=== PATIENT | female | born 1990 | race Hispanic/Latino ===

== ENCOUNTER 2019-02-13 11:50 | Inpatient (IN) | payer OTHER ==
[2019-02-18] MEDS ORDERED: BUTORPHANOL 1 MG/ML INJ IV PRN (00:48)
[2019-02-18] MEDS ORDERED: Ringers Lactate 1,000 ML IV PRN (00:48)
[2019-02-18] MEDS ORDERED: METHYLERGONOVINE 0.2MG/ML AMP IM PRN (00:48)
[2019-02-18] MEDS ORDERED: MEPERIDINE HCL 25 MG/0.5 ML IV PRN (00:48)
[2019-02-18] MEDS ORDERED: PROMETHAZINE 25 MG/ML VIAL IM PRN (00:48)
[2019-02-18] MEDS ORDERED: CARBOPROST TROME 250 MCG/ML IM PRN (00:48)
[2019-02-18] MEDS ORDERED: MIDAZOLAM HCL 2 MG/2 ML INJ IV PRN (00:48)
[2019-02-18] MEDS ORDERED: Ringers Lactate 1,000 ML IV SCH (01:00)
[2019-02-18] MEDS ORDERED: OXYTOCIN/LR 20 UNIT/1,000 ML BAG IV SCH ×2 (01:00→05:00)
[2019-02-18 01:06] LABS: RPR Titer ND
[2019-02-18 01:10] LABS: Absolute Lymphocytes (CBC) 1.8 K/uL (0.7-4.9); Absolute Monocytes 0.7 K/uL (0.1-1.3); Absolute Neutrophil 7.3 K/uL (1.8-8.0); Basophils % 0.2 % (0-1.3); Eosinophils % 0.4 % (0-4.4); Hematocrit 37.4 % (36.0-45.0); Lymphocytes % 18.1 % (15.3-44.8); MPV 8.8 fL (7.6-11.3); Monocytes % 7.2 % (3.3-12.3); RBC Red Blood Cell Count 4.24 M/uL (3.86-4.86); Urine Appearance TURBID; Urine Blood 3+ (NEG); Urine Color RED; Urine Glucose TRACE (NEG); Urine Protein 2+ (NEG); Urine Specific Gravity >=1.030 (1.005-1.030)
[2019-02-18 01:14] LABS: Urine Bilirubin NEGATIVE (NEG); Urine Microscopic Reflex ORDER UMIC
[2019-02-18 01:25] LABS: Urine Bacteria >50 /HPF (<20); Urine Culture Reflex Order NOT NEEDED; Urine Mucus HEAVY /HPF (NONE SEEN); Urine RBC TNTC /HPF (NONE SEEN)
[2019-02-18] MEDS ORDERED: LIDOCAINE 1% MPF 30 ML VIAL ONE (02:00)
[2019-02-18 02:08] VITALS: BMI 35.6
[2019-02-18] MEDS ORDERED: BUPIVACAINE 0.25% PF 10 ML VIAL IV PRN (02:08)
[2019-02-18] MEDS ORDERED: FENTANYL/BUPIVACAINE/NS/PF 200 MCG/100 ML BAG EP PRN (02:08)
[2019-02-18] MEDS ORDERED: FENTANYL CITR 100 MCG/2 ML IV ONE (02:08)
[2019-02-18] MEDS ORDERED: Ringers Lactate 1,000 ML IV ONE (03:49)
--- NOTE | 2019-02-18 03:53 | PN ---
Vicky García got an epidural at her request at 8 cm, now has basically stopped dilating. She is 9. She is on Pitocin. We will cut the epidural back from 12 to 10 and increase the Pitocin until she can feel to be able to push the baby out. LYNNE/FILIBERTO Voice ID: [id number] Report ID: [id number]
[2019-02-18] MEDS ORDERED: DOCUSATE NA/SENNA CONC 1 TAB PO PRN (04:36)
[2019-02-18] MEDS ORDERED: Oxycodone HCl/Acetaminophen 1 TAB TAB PO PRN (04:36)
[2019-02-18] MEDS ORDERED: BISACODYL 10 MG RECTAL SUPP RECT PRN (04:36)
[2019-02-18] MEDS ORDERED: DIPHENHYDRAMINE 25 MG TAB/CAP PO PRN (04:36)
[2019-02-18] MEDS ORDERED: ACETAMINOPHEN 500 MG TAB PO PRN (04:36)
[2019-02-18] MEDS: IBUPROFEN 200 MG TAB PO PRN ×2 (08:00→21:07)
[2019-02-18] MEDS: Oxycodone HCl/Acetaminophen 1 TAB TAB PO PRN (12:56)
[2019-02-18 20:22] LABS: RPR (Rapid Plasma Reagin) NON-REACT (NON-REACT)
[2019-02-19] MEDS: IBUPROFEN 200 MG TAB PO PRN (04:08)
--- NOTE | 2019-02-19 08:03 | OP ---
Surgeon: Cleveland Doe MD This is a 28-year-old 3, para 2, 40 weeks 2 days, scheduled for induction later this morning, came in after midnight and active, slowly advancing labor noted to be approximately 6 to 7 cm. At 8 cm requested, received epidural anesthesia. This slowed her progress somewhat, but we moved the mayra ntenance dose from 12-10 and she progressed rapidly thereafter. She spontaneously delivered an estim ated 8-pound male , Apgars 9 and 9. No episiotomy. Very small first degree laceration sutured with 2-0 chromic, approximately 4-5 stitches. Schultze delivery of the placenta, which was inspecte d and noted to be intact and normal. 400 cc or less blood loss. The patient is Rh positive, immune to Rubella. Negative beta strep screen. Tolerated all procedures well. Final Diagnoses: Term intrauterine , 40 weeks 2 days, gestational diabetes, vaginal deliver y, epidural anesthesia. LYNNE/FILIBERTO Voice ID: [id number] Report ID: [id number]
--- NOTE | 2019-02-19 08:03 | PREOPHP ---
Date of Admission: 02/18/2019 History Of Present Illness: A 28-year-old, 3, para 2, 40 weeks 2 days, scheduled to be induc ed later this morning. Came in an active rapidly advancing labor, 6 cm on admission. Within the nex t 20 minutes, she is 7, 100% effaced, 0 to +1 station, rupture of membranes, clear fluid. Scalp elec trode placed. We are in a process of hydrating her. She is requesting epidural, but probably would not have time. She has been a gestational diabetic, non-compliant. She has not been taking her glyb uride as per instructions. Ultrasound yesterday, however, demonstrated intrauterine gestation of les s than 8 pounds according to ultrasound estimates. This has been discussed thoroughly with the patie nt on numerous visits. Anticipate delivery relatively soon. LYNNE/FILIBERTO Voice ID: [id number]
[2019-02-19] MEDS: Oxycodone HCl/Acetaminophen 1 TAB TAB PO PRN (08:47)
[2019-02-19 08:56] VITALS: BP 118/69; TEMP 98.4
[2019-02-21 11:30] LABS: HBsAG Nonreactive (Nonreactive)
== END 2019-02-19 11:15 | disposition home or self-care (01) | DRG 807 ==
LOC: 2ND-WC 02-18 00:40
PROVIDERS: ADMIT Specialist; ATTEND Specialist
PROC: 10E0XZZ Delivery of Products of Conception, External Approach (ICD-10-PCS; principal; 2019-02-18)
PROC: 0HQ9XZZ Repair Perineum Skin, External Approach (ICD-10-PCS; 2019-02-18)
DX: O70.0 First degree perineal laceration during delivery (principal); Z37.0 Single live birth; O24.425 Gestational diabetes mellitus in childbirth, controlled by oral hypoglycemic drugs; Z3A.40 40 weeks gestation of pregnancy; Z91.14 Patient's other noncompliance with medication regimen
CPT/HCPCS: 36415; 76815; 81003; 81015; 85025; 86592; 86901; 87340; 99218; J2175; J2210; J2250; J2590; J3010

== ENCOUNTER 2019-11-15 18:04 | Inpatient (IN) | payer OTHER, SELFPAY ==
--- NOTE | 2019-11-15 18:54 | RAD REPORT ---
EXAM DESCRIPTION: Laurat Pa And Lat (2 Views)11/15/2019 6:45 pm CLINICAL HISTORY: Cough COMPARISON: None FINDINGS: Mild right lower lobe opacity is suspected. Left lung is clear. The heart is normal size IMPRESSION: Mild right lower lobe opacity probably a mild pneumonia
[2019-11-15] MEDS ORDERED: ACETAMINOPHEN 500 MG TAB ONE (19:44)
[2019-11-15] MEDS ORDERED: KETOROLAC 30 MG/ML INJ ONE (20:01)
[2019-11-15] MEDS ORDERED: AZITHROMYCIN 500 MG INJ IVPB ONE (20:01)
[2019-11-15] MEDS ORDERED: NA CHLORIDE 0.9% 2,000 ML ONE (20:02)
[2019-11-15] MEDS ORDERED: CEFTRIAXONE/SWI 1gm 1 GM/10 ML SYR ONE (20:02)
[2019-11-15] MEDS ORDERED: NA CHLORIDE 0.9% 500 ML ONE ×2 (20:02)
[2019-11-15 20:05] LABS: Basophils % 0.2 % (0-1.3); Hematocrit 40.3 % (36.0-45.0); MPV 7.8 fL (7.6-11.3); RBC Red Blood Cell Count 4.67 M/uL (3.86-4.86)
[2019-11-15 20:09] LABS: Protime INR 1.33
[2019-11-15 20:22] LABS: ALT/SGPT 17 U/L (12-78); AST/SGOT 23 U/L (15-37); Albumin 3.7 g/dL (3.4-5.0); Alkaline Phosphatase 89 U/L (45-117); BUN Blood Urea Nitrogen 5 mg/dL (7-18); Bicarbonate 24 mmol/L (21-32); Bilirubin Direct 0.3 mg/dL (0-0.2); Creatine Phosphokinase 47 U/L (26-192); Glucose Level 121 mg/dL (74-106); Lipase 82 U/L (73-393); Potassium 3.5 mmol/L (3.5-5.1); Protein, Total 8.5 g/dL (6.4-8.2); Sodium Level 134 mmol/L (136-145); Troponin (Emerg Dept Use Only) < 0.02 ng/mL (0.0-0.045)
[2019-11-15 20:27] LABS: Urine Blood TRACE (NEG); Urine Glucose NEGATIVE (NEG); Urine Protein 2+ (NEG); Urine Specific Gravity 1.025 (1.005-1.030)
[2019-11-15 20:31] LABS: Urine Bacteria <20 /HPF (<20); Urine Culture Reflex Order NOT NEEDED; Urine Mucus 1+ /HPF (NONE SEEN); Urine RBC NONE SEEN /HPF (NONE SEEN)
[2019-11-15 21:17] LABS: Blood Morphology Comment NOT SEEN (NOT SEEN); Platelet Estimate ADEQ; Urine White Blood Cell Casts OK
--- NOTE | 2019-11-15 21:33 | ER ---
Nurse's Notes [facility] Name: Vicky García Age: 29 yrs Sex: Female : 1990 Arrival Date: 11/15/2019 Time: 18:06 Bed 28 Private MD: Diagnosis: Pneumonia due to other specified bacteria;Other sepsis Presentation: 11/15 18:14 Presenting complaint: Patient states: "It started with the flu 6 weeks ago, 2 weeks aj1 later I got shingles, and then yesterday I started having pains in my back and it got worse today and I've just slept all day." Reports fever at home. TMax 102.4 Reports midback pain that is worse with coughing or deep breathing. Transition of care: patient was not received from another setting of care. Onset of symptoms was October 2019. Risk Assessment: Do you want to hurt yourself or someone else? Patient reports no desire to harm self or others. Initial Sepsis Screen: Does the patient meet any 2 criteria? HR > 90 bpm. No. Patient's initial sepsis screen is negative. Does the patient have a suspected source of infection? Yes: Other: low back pain. Care prior to arrival: None. 18:14 Method Of Arrival: Wheelchair aj1 18:14 Acuity: TERRIE 3 aj1 Triage Assessment: 18:16 General: Appears in no apparent distress. uncomfortable, Behavior is calm, cooperative, aj1 appropriate for age. Pain: Complains of pain in low back area and mid back area Aggravated by cough, deep breathing. Neuro: Level of Consciousness is awake, alert, obeys commands. Cardiovascular: Patient's skin is warm and dry. Respiratory: Airway is patent Respiratory effort is even, unlabored, Respiratory pattern is regular, symmetrical. CORRECTION WARDEN: 19:30 LMP N/A - Irregular menses ca1 Historical: - Allergies: 18:16 No Known Allergies; aj1 - Home Meds: 18:16 None [Active]; aj1 - PMHx: 18:16 None; aj1 - PSHx: 18:16 None; aj1 - Immunization history:: Flu vaccine is not up to date. - Coronavirus screen:: The patient has NOT traveled to [place] in the past 14 days. - Social history:: Smoking status: Patient/guardian denies using tobacco. - Ebola Screening: : Patient denies travel to an Ebola-affected area in the 21 days before illness onset. Screenin:20 Abuse screen: Denies threats or abuse. Denies injuries from another. Nutritional ca1 screening: No deficits noted. Tuberculosis screening: No symptoms or risk factors identified. Fall Risk None identified. Assessment: 19:20 General: Appears in no apparent distress. comfortable, Behavior is calm, cooperative, ca1 appropriate for age. Pain: Complains of pain in right scapular area and right subscapular area Pain currently is 6 out of 10 on a pain scale. Pain began 2-3 days ago. Pain: Aggravated by coughing and breathing. Neuro: Level of Consciousness is awake, alert, obeys commands, Oriented to person, place, time, situation, Appropriate for age. Cardiovascular: Heart tones S1 S2 present Capillary refill < 3 seconds Patient's skin is warm and dry. Respiratory: Airway is patent Respiratory effort is even, unlabored, Respiratory pattern is regular, symmetrical, Breath sounds are clear bilaterally. Respiratory: Reports cough that is. GI: Abdomen is round non-distended, Bowel sounds present X 4 quads. Abd is soft and non tender X 4 quads. : No deficits noted. No signs and/or symptoms were reported regarding the genitourinary system. EENT: No deficits noted. No signs and/or symptoms were reported regarding the EENT system. Derm: Skin is intact, is healthy with good turgor, Skin is pink, warm \\T\\ dry. Musculoskeletal: Circulation, motion, and sensation intact. Capillary refill < 3 seconds. 20:30 Reassessment: Patient appears in no apparent distress at this time. Patient and/or ca1 family updated on plan of care and expected duration. Pain level reassessed. Patient is alert, oriented x 3, equal unlabored respirations, skin warm/dry/pink. 21:41 Reassessment: Patient appears in no apparent distress at this time. Patient and/or ca1 family updated on plan of care and expected duration. Pain level reassessed. Patient is alert, oriented x 3, equal unlabored respirations, skin warm/dry/pink. Hospitalist at bedside. 22:34 Reassessment: Patient appears in no apparent distress at this time. Patient and/or ca1 family updated on plan of care and expected duration. Pain level reassessed. Patient is alert, oriented x 3, equal unlabored respirations, skin warm/dry/pink. Vital Signs: 18:16 BP 124 / 84; Pulse 118; Resp 20; Temp 99.8(O); Pulse Ox 97% on R/A; Weight 86.18 kg aj1 (R); Height 5 ft. 5 in. (165.10 cm) (R); Pain 0/10; 19:36 BP 138 / 85; Pulse 115; Resp 16 S; Temp 102.8(O); Pulse Ox 98% on R/A; ca1 21:05 BP 135 / 88; Pulse 90; Resp 16 S; Temp 98.9(O); Pulse Ox 98% on R/A; ca1 21:41 BP 124 / 85; Pulse 97; Resp 16 S; Pulse Ox 99% on R/A; ca1 22:32 BP 132 / 85; Pulse 89; Resp 20; Temp 98.0(O); Pulse Ox 99% ; lt1 18:16 Body Mass Index 31.62 (86.18 kg, 165.10 cm) aj ED Course: 18:06 Patient arrived in ED. as 18:16 Triage completed. aj1 19:14 Marin Madden PA is PHCP. cp 19:14 Mynor Martinez MD is Attending Physician. cp 19:20 Terrie Stephen RN is Primary Nurse. ca1 19:20 Patient has correct armband on for positive identification. Bed in low position. Call ca1 light in reach. Side rails up X 1. Pulse ox on. NIBP on. Warm blanket given. 19:21 Arm band placed on right wrist. ca1 19:50 No provider procedures requiring assistance completed. Inserted saline lock: 18 gauge ca1 in left antecubital area, using aseptic technique. Blood collected. 19:50 Initial lab(s) drawn, by me, sent to lab. First set of blood cultures drawn by me. ca1 19:55 Second set of blood cultures drawn by lab staff. ca1 21:30 Michael Carson is Hospitalizing Provider. cp 22:35 Patient admitted, IV remains in place. ca1 Administered Medications: 19:40 Drug: Tylenol 1000 mg Route: PO; ca1 21:48 Follow up: Response: No adverse reaction; Temperature is decreased ca1 19:55 Drug: NS 0.9% (30 ml/kg) 30 ml/kg Route: IV; Rate: bolus; Site: left antecubital; ca1 21:46 Follow up: Response: No adverse reaction; IV Status: Completed infusion ca1 19:56 Drug: Rocephin 1 grams Route: IV; Rate: calculated rate; Site: left antecubital; ca1 21:44 Follow up: Response: No adverse reaction; IV Status: Completed infusion ca1 20:02 Drug: Zithromax 500 mg Route: IVPB; Infused Over: 1 hrs; Site: left antecubital; ca1 21:43 Follow up: Response: No adverse reaction; IV Status: Completed infusion ca1 20:20 Drug: TORadol - Ketorolac 15 mg Route: IVP; Site: left antecubital; ca1 21:43 Follow up: Response: No adverse reaction; Pain is decreased ca1 Outcome: 21:32 Decision to Hospitalize by Provider. cp 22:56 Admitted to Tele accompanied by tech, via wheelchair, room 422, with chart, Report ca1 called to SAMMI Osman 22:56 Condition: stable 22:56 Instructed on the need for admit. 23:06 Patient left the ED. fc Signatures: Vaishali Aguilar RN RN aj1 Brigida Soares RN RN fc Carina Hurtado Corey, PA PA cp Terrie Stephen RN RN ca1 Heather High lt1 Corrections: (The following items were deleted from the chart) 18:18 18:16 Pain: Complains of pain in low back area aj1 aj 18:19 18:14 Presenting complaint: Patient states: "It started with the flu 6 weeks ago, 2 aj1 weeks later I got shingles, and then yesterday I started having pains in my back and it got worse today and I've just slept all day." Reports fever at home. TMax 102.4 aj1
--- NOTE | 2019-11-15 21:33 | EDPHYS ---
Physician Documentation [facility] Name: Vicky García Age: 29 yrs Sex: Female : 1990 Arrival Date: 11/15/2019 Time: 18:06 Bed 28 Private MD: ED Physician Mynor Martinez HPI: 11/15 19:20 This 29 yrs old Female presents to ER via Wheelchair with complaints of Flu cp Symptoms - lung pain. 19:20 The patient or guardian reports chest pain that is located primarily in the right lower cp lateral chest. 19:20 The pain radiates to right back. Associated signs and symptoms: Pertinent positives: cp cough, shortness of breath, fever, Pertinent negatives: lower extremity pain, lower extremity swelling, recent travel, syncope, vomiting. The chest pain is described as sharp. Duration: The patient or guardian reports a single episode, that is still ongoing, and worsening. Modifying factors: the symptoms are aggravated by cough, deep breath. TAI CHI INSTRUCTOR: 19:30 LMP N/A - Irregular menses ca1 Historical: - Allergies: 18:16 No Known Allergies; aj1 - Home Meds: 18:16 None [Active]; aj1 - PMHx: 18:16 None; aj1 - PSHx: 18:16 None; aj1 - Immunization history:: Flu vaccine is not up to date. - Coronavirus screen:: The patient has NOT traveled to [place] in the past 14 days. - Social history:: Smoking status: Patient/guardian denies using tobacco. - Ebola Screening: : Patient denies travel to an Ebola-affected area in the 21 days before illness onset. ROS: 19:25 Constitutional: Positive for body aches, chills, Negative for fever, poor PO intake. cp 19:25 Eyes: Negative for injury, pain, redness, and discharge. cp 19:25 ENT: Negative for drainage from ear(s), ear pain, sore throat, difficulty swallowing, difficulty handling secretions. 19:25 Cardiovascular: Positive for chest pain, of the right lower lateral chest, Negative for edema, palpitations. 19:25 Respiratory: Positive for cough, "sounds productive", shortness of breath, Negative for wheezing. 19:25 Abdomen/GI: Negative for abdominal pain, vomiting, diarrhea, constipation. 19:25 Back: Positive for radiated pain. 19:25 : Negative for urinary symptoms. 19:25 Neuro: Negative for altered mental status, headache, weakness. 19:25 All other systems are negative. Exam: 19:30 Constitutional: The patient appears in no acute distress, alert, awake, cp non-diaphoretic, non-toxic, well developed, well nourished, obviously ill. 19:30 Head/Face: Normocephalic, atraumatic. cp 19:30 Eyes: Periorbital structures: appear normal, Conjunctiva: normal, no exudate, no injection, Sclera: no appreciated abnormality, Lids and lashes: appear normal, bilaterally. 19:30 ENT: External ear(s): are unremarkable, Ear canal(s): are normal, clear, TM's: bulging, is not appreciated, bilaterally, dullness, bilaterally, erythema, is not appreciated, bilaterally, Nose: is normal, Mouth: Lips: moist, Oral mucosa: pink and intact, moist, Posterior pharynx: is normal, airway is patent, no erythema, no exudate. 19:30 Neck: ROM/movement: is normal, is supple, without pain, no range of motions limitations, no meningismus, no nuchal rigidity. 19:30 Chest/axilla: Inspection: normal, Palpation: is normal, no crepitus, no tenderness. 19:30 Cardiovascular: Rate: tachycardic, Rhythm: regular, Heart sounds: murmur, not appreciated, rub, not appreciated, gallop, not appreciated, Edema: is not appreciated, JVD: is not appreciated. 19:30 Respiratory: the patient does not display signs of respiratory distress, Respirations: labored breathing, is not present, intercostal retractions, are absent, shallow respirations, that is mild, tachypnea, is not appreciated, Breath sounds: bronchial sounds, that are mild, are heard in the right posterior middle lobe and right posterior lower lobe, decreased breath sounds, are not appreciated, stridor, is not appreciated, wheezing: is not appreciated. 19:30 Abdomen/GI: Inspection: abdomen appears normal, Bowel sounds: active, all quadrants, Palpation: abdomen is soft and non-tender, in all quadrants, rebound tenderness, is not appreciated, voluntary guarding, is not appreciated, involuntary guarding, is not appreciated. 19:30 Neuro: Orientation: to person, place \\T\\ time. Mentation: is normal, Cerebellar function: is grossly normal, Motor: moves all fours, strength is normal, Sensation: is normal. 20:13 ECG was reviewed by the Attending Physician. cp Vital Signs: 18:16 BP 124 / 84; Pulse 118; Resp 20; Temp 99.8(O); Pulse Ox 97% on R/A; Weight 86.18 kg aj1 (R); Height 5 ft. 5 in. (165.10 cm) (R); Pain 0/10; 19:36 BP 138 / 85; Pulse 115; Resp 16 S; Temp 102.8(O); Pulse Ox 98% on R/A; ca1 21:05 BP 135 / 88; Pulse 90; Resp 16 S; Temp 98.9(O); Pulse Ox 98% on R/A; ca1 21:41 BP 124 / 85; Pulse 97; Resp 16 S; Pulse Ox 99% on R/A; ca1 22:32 BP 132 / 85; Pulse 89; Resp 20; Temp 98.0(O); Pulse Ox 99% ; lt1 18:16 Body Mass Index 31.62 (86.18 kg, 165.10 cm) aj1 MDM: 19:16 Patient medically screened. cp 21:30 Data reviewed: vital signs, nurses notes, lab test result(s), EKG, radiologic studies, cp plain films, I have discussed the patient's presentation/case with the attending Emergency Department Physician; and as a result, I will admit patient. 21:30 Test interpretation: by ED physician or midlevel provider: ECG. Response to treatment: cp the patient's symptoms have markedly improved after treatment. Physician consultation: Michael Carson was called at 21:25, was contacted at 21:25, regarding admission, to the telemetry unit. patient's condition. 11/15 19:42 Order name: Influenza Screen (a \\T\\ B) cp 11/15 19:42 Order name: Basic Metabolic Panel cp 11/15 19:42 Order name: Blood Culture Adult (2) cp 11/15 19:42 Order name: CBC with Diff cp 11/15 19:42 Order name: CPK cp 11/15 19:42 Order name: Lactate cp 11/15 19:42 Order name: LFT's cp 11/15 19:42 Order name: Lipase cp 11/15 19:42 Order name: Procalcitonin cp 11/15 19:42 Order name: Protime (+inr) cp 11/15 19:42 Order name: Ptt, Activated cp 11/15 19:42 Order name: Troponin (emerg Dept Use Only) cp 11/15 19:42 Order name: Urine Microscopic Only cp 11/15 20:07 Order name: CBC with Automated Diff EDMS 11/15 21:09 Interpretation: Normal except: WBC 14.2; NATALI% 86.2; LYM% 7.0; NEUT A 12.2. cp 11/15 20:16 Order name: Protime (+INR); Complete Time: 21:09 EDMS 11/15 21:09 Interpretation: Abnormal: PT 15.5. cp 11/15 20:16 Order name: PTT, Activated Partial Thromb; Complete Time: 21:09 EDMS 11/15 20:18 Order name: Lactate; Complete Time: 21:09 EDMS 11/15 20:23 Order name: Basic Metabolic Panel; Complete Time: 21:09 EDMS 11/15 21:09 Interpretation: Normal except: NA 134; GLUC 121; BUN 5; GFR 82. cp 11/15 20:23 Order name: Liver (Hepatic) Function; Complete Time: 21:09 EDMS 11/15 21:10 Interpretation: Normal except: BILID 0.3; TP 8.5; GLOB 4.8; A/G 0.8. cp 11/15 20:23 Order name: Creatine Phosphokinase; Complete Time: 21:09 EDMS 11/15 20:23 Order name: Troponin (Emerg Dept Use Only); Complete Time: 21:09 EDMS 11/15 20:23 Order name: Lipase; Complete Time: 21:09 EDMS 11/15 20:24 Order name: Urine Dipstick--Ancillary (enter results) [facility] 11/15 20:24 Order name: Urine --Ancillary (enter results) [facility] 11/15 20:28 Order name: Urine --Ancillary; Complete Time: 21:09 EDMS 11/15 20:28 Order name: Urine Dipstick-Ancillary; Complete Time: 21:09 EDMS 11/15 21:13 Interpretation: Normal except: UKET 2+; UBLD TRACE; UPROT 2+. cp 11/15 20:29 Order name: Procalcitonin; Complete Time: 21:09 EDMS 11/15 21:09 Interpretation: Abnormal: Procalcitonin 0.90. cp 11/15 20:33 Order name: Urine Microscopic Only; Complete Time: 21:09 EDMS 11/15 20:48 Order name: Influenza Screen (A ; Complete Time: 21:09 EDMS 11/15 21:18 Order name: CBC Smear Scan EDMS 11/15 18:19 Order name: Chest Pa And Lat (2 Views) XRAY aj1 11/15 19:38 Order name: RAD; Complete Time: 19:44 EDMS 11/15 19:44 Interpretation: Report reviewed. cp 11/15 19:42 Order name: Urine Test (obtain specimen); Complete Time: 20:45 cp 11/15 19:42 Order name: Cardiac monitoring; Complete Time: 19:53 cp 11/15 19:42 Order name: EKG - Nurse/Tech; Complete Time: 20:07 cp 11/15 19:42 Order name: IV Saline Lock - Large Bore; Complete Time: 19:53 cp 11/15 19:42 Order name: Labs collected and sent; Complete Time: 19:53 cp 11/15 19:42 Order name: O2 Per Protocol; Complete Time: 20:06 cp 11/15 19:42 Order name: O2 Sat Monitoring; Complete Time: 19:53 cp 11/15 19:42 Order name: Urine Dipstick-Ancillary (obtain specimen); Complete Time: 20:45 cp EC:13 Rate is 108 beats/min. Rhythm is regular. OK interval is normal. QRS interval is cp normal. QT interval is normal. Interpreted by me. Reviewed by me. Administered Medications: 19:40 Drug: Tylenol 1000 mg Route: PO; ca1 21:48 Follow up: Response: No adverse reaction; Temperature is decreased ca1 19:55 Drug: NS 0.9% (30 ml/kg) 30 ml/kg Route: IV; Rate: bolus; Site: left antecubital; ca1 21:46 Follow up: Response: No adverse reaction; IV Status: Completed infusion ca1 19:56 Drug: Rocephin 1 grams Route: IV; Rate: calculated rate; Site: left antecubital; ca1 21:44 Follow up: Response: No adverse reaction; IV Status: Completed infusion ca1 20:02 Drug: Zithromax 500 mg Route: IVPB; Infused Over: 1 hrs; Site: left antecubital; ca1 21:43 Follow up: Response: No adverse reaction; IV Status: Completed infusion ca1 20:20 Drug: TORadol - Ketorolac 15 mg Route: IVP; Site: left antecubital; ca1 21:43 Follow up: Response: No adverse reaction; Pain is decreased ca1 Disposition: 11/15/19 21:32 Hospitalization ordered by Michael Carson for Inpatient Admission. Preliminary diagnosis are Pneumonia due to other specified bacteria, Other sepsis. - Bed requested for Telemetry/MedSurg (Inpatient). - Status is Inpatient Admission. fc - Condition is Stable. - Problem is new. - Symptoms have improved. Addendum: 11/18/2019 07:15 Co-signature as Attending Physician, Mynor Martinez MD I agree with the assessment and k dr plan of care. Signatures: Dispatcher [employer] EDMS Vaishali Aguilar RN RN aj1 Mynor Martinez MD MD [facility] Brigida Soares RN RN Marin Madden PA PA cp Clara Sheikh, SAMMI RN Terrie Stephen RN RN ca1 Corrections: (The following items were deleted from the chart) 11/15 20:06 19:42 Accucheck ordered. cp ca1 22:33 21:32 Hospitalization Ordered by Michael Carson for Inpatient Admission. Preliminary cg diagnosis is Pneumonia due to other specified bacteria; Other sepsis. Bed requested for Telemetry/MedSurg (Inpatient). Status is Inpatient Admission. Condition is Stable. Problem is new. Symptoms have improved. cp 23:06 22:33 11/15/2019 21:32 Hospitalization Ordered by Michael Carson for Inpatient fc Admission. Preliminary diagnosis is Pneumonia due to other specified bacteria; Other sepsis. Bed requested for Telemetry/MedSurg (Inpatient). Status is Inpatient Admission. Condition is Stable. Problem is new. Symptoms have improved. cg
--- NOTE | 2019-11-15 22:11 | P.HP ---
Certification for Inpatient Patient admitted to: Observation With expected LOS: <2 Midnights Practitioner: I am a practitioner with admitting privileges, knowledge of patient current condition, hospital course, and medical plan of care. Services: Services provided to patient in accordance with Admission requirements found in Title 42 Section 412.3 of the Code of Federal Regulations Patient History Date of Service: 11/15/19 Reason for admission: Cough and shortness of breath History of Present Illness: 29-year-old woman with no known past medical history presented to the ED with a complaint of cough and shortness of breath of about 2 days duration. Patient stated her symptoms were preceded by flu-like symptoms which started 6 weeks ago. She also developed a rash and blisters on the left shoulder which were painful and suspected might be shingles. She stated the cough is nonproductive. She has chest pain with deep breathing. She denied any nausea or vomiting. She was afebrile in the ED. Chest x-ray in the ED report opacity in the right lower lobe suggesting mild pneumonia. She has leukocytosis and tachycardia and meet criteria for sepsis. Her procalcitonin is elevated but lactic acid is normal. Patient is admitted for further management of pneumonia with sepsis. Allergies No Known Allergies Allergy (Verified 11/15/19 23:17) Home Medications: Vit No.44/Iron/FA/Dha [Prenate Mini Softgel] 1 cap PO SEECOM 03/05/16 - Past Medical/Surgical History Diabetic: No -: GDM -: NVD x2 - Family History Father -: Diabetes - Social History Smoking Status: Never smoker Alcohol use: No CD- Drugs: No Caffeine use: Yes Review of Systems Other: Except as documented, all other systems reviewed and negative. Physical Examination - Physical Exam General: Alert, In no apparent distress, Oriented x3 HEENT: Normocephalic, Mucous membr. moist/pink, Sclerae nonicteric Neck: Supple, JVD not distended, No Thyromegaly Respiratory: Normal air movement, Crackles/rales (Right lower lobe) Cardiovascular: No edema, Normal pulses, No murmurs, Other (Tachycardia) Capillary refill: <2 Seconds Gastrointestinal: Normal bowel sounds, Soft and benign, Non-distended, No tenderness Musculoskeletal: No swelling, No erythema Integumentary: Rash(es) (Discrete erythematous rash on the left shoulder.) Neurological: Normal speech, Normal strength at 5/5 x4 extr, Cranial nerves 3- 12 intact - Studies Laboratory Data (last 24 hrs) 11/15/19 19:50: PT 15.5 H, INR 1.33, APTT 33.9 11/15/19 19:50: WBC 14.2 H, Hgb 13.3, Hct 40.3, Plt Count 197 11/15/19 19:50: Sodium 134 L, Potassium 3.5, BUN 5 L, Creatinine 0.83, Glucose 121 H, Total Bilirubin 1.0, AST 23, ALT 17, Alkaline Phosphatase 89, Lipase 82 Microbiology Data (last 24 hrs): 11/15/19 20:13 Nasopharnyx Influenza Type A Antigen Screen - Final 11/15/19 20:13 Nasopharnyx Influenza Type B Antigen Screen - Final Assessment and Plan - Problems (Diagnosis) (1) Pneumonia Current Visit: Yes Status: Acute (2) Sepsis Current Visit: Yes Status: Acute (3) Skin rash Current Visit: Yes Status: Acute - Plan Admit to the medical floor. Start IV Zithromax and Rocephin. Start oral Valtrex Bronchodilators prn Follow blood cultures. Obtain sputum culture Monitor CBC. Optimize electrolytes. - Advance Directives Does patient have a Living Will: No Does patient have a Durable POA for Healthcare: No
[2019-11-15] MEDS ORDERED: ALBUTEROL 2.5 MG/3 ML NEB SOL NEB PRN (23:23)
[2019-11-15] MEDS ORDERED: ONDANSETRON 4 MG/2 ML VIAL IV PRN (23:23)
[2019-11-15 23:36] VITALS: BMI 30.4
[2019-11-15] MEDS ORDERED: POTASSIUM CL SA 10 MEQ TAB PO ONE (23:36)
[2019-11-16] MEDS: NA CHLORIDE 0.9% 1,000 ML IV SCH ×3 (00:02→16:47)
[2019-11-16] MEDS: ACETAMINOPHEN 500 MG TAB PO PRN ×2 (02:40→21:10)
[2019-11-16 06:17] LABS: Absolute Lymphocytes (CBC) 1.4 K/uL (0.7-4.9); Basophils % 0.2 % (0-1.3); Hematocrit 33.6 % (36.0-45.0); Lymphocytes % 13.3 % (15.3-44.8); RBC Red Blood Cell Count 3.91 M/uL (3.86-4.86)
[2019-11-16 06:21] LABS: BUN Blood Urea Nitrogen 4 mg/dL (7-18); Bicarbonate 22 mmol/L (21-32); Glucose Level 104 mg/dL (74-106); HDL Cholesterol 34 mg/dL (40-60); LDL Cholesterol, Calculated 52 (<130); Magnesium 1.7 mg/dL (1.8-2.4); Phosphorus 1.3 mg/dL (2.5-4.9); Potassium 3.7 mmol/L (3.5-5.1); Sodium Level 139 mmol/L (136-145)
[2019-11-16] MEDS ORDERED: IBUPROFEN 400 MG TAB PO PRN (08:50)
[2019-11-16] MEDS: ENOXAPARIN 40 MG/0.4 ML SQ SCH (08:52)
[2019-11-16] MEDS: CEFTRIAXONE/SWI 1gm 1 GM/10 ML SYR IVP SCH ×2 (08:52→21:05)
[2019-11-16] MEDS: POTASS/SODIUM PHOSPHATE 1 PKT POWD.PACK PO SCH ×3 (08:52→11:44)
[2019-11-16] MEDS ORDERED: POTASSIUM CL SA 10 MEQ TAB PO ONE (09:00)
[2019-11-16] MEDS ORDERED: CEFTRIAXONE/SWI 1gm 1 GM/10 ML SYR IV SCH (09:00)
[2019-11-16] MEDS ORDERED: MAGNESIUM SULFATE 1 gm IVPB 1 GM/100 ML BAG IV ONE (09:00)
[2019-11-16] MEDS ORDERED: CEFTRIAXONE 1 GM/NS 50 ML 1 GM/50 ML BAG IV SCH (09:00)
[2019-11-16] MEDS: AZITHROMYCIN IV 500 MG in NA CHLORIDE 0.9% 250 ML IVPB SCH (09:52)
[2019-11-16] MEDS ORDERED: INFLUENZA VACCINE (for 3y+) 0.5 ML DOSE IMVAC ONE (11:00)
--- NOTE | 2019-11-16 12:47 | PN ---
Date of Progress Note: 11/16/2019 Subjective: Patient seen and examined. Chart reviewed and case discussed with RN. Patient still waldrop ving some cough, shortness of breath, and minimal sputum production. Medications: List reviewed. Physical Examination: Vital Signs: Temperature 98.1, heart rate 86, blood pressure 114/59, respirations 16, O2 saturations 97% on room air. General: Awake, alert, oriented x3, obese female, BMI 30, ill-appearing. CVS: S1, S2. Regular rate and rhythm. Respiratory: Diminished breath sounds on the right. Some rhonchi heard. No wheezing or stridor. Gastrointestinal: Abdomen is soft, nontender, nondistended. Positive bowel sounds. Extremities: No clubbing, cyanosis, or edema. Neurologic: Nonfocal. Cranial nerves 2 through 12 intact grossly. No focal neurological deficits. Skin: The patient has erythematous rash on the left shoulder. No blisters or vesicles present. Laboratory Data: Sodium 139, potassium 3.7, chloride 110, CO2 of 22, BUN 4, creatinine 0.6, glucose 104, calcium 7.7, phosphorus 1.3, magnesium 1.7. Triglycerides 105, cholesterol 107, LDL 52, HDL 34. Procalcitonin 0.9. WBC 10.5, hemoglobin and hematocrit 11.2 and 33.6, platelets 181, neutrophils 7 8%. Influenza screen is negative. Blood cultures are pending. Assessment: A 29-year-old female with 1.Sepsis, improving. We will continue IV fluids and IV antibiotics secondary to pneumonia. Follow up on cultures. 2.Right lower lobe pneumonia. We will continue IV antibiotics. We will obtain sputum culture. 3.Hypophosphatemia. We will replace and monitor. 4.Hypomagnesemia, replace and monitor. 5.Rash on the shoulder, likely shingles that is healing. We will continue Valtrex. Plan: We will continue with deep venous thrombosis prophylaxis with Lovenox, SCDs. Continue antibio tics. Follow up on cultures. Likely discharge in the next 24 to 48 hours depending on clinical resp onse. SA/MODL Voice ID: [id number] Report ID: [id number]
[2019-11-16] MEDS: VALACYCLOVIR 500 MG TAB PO SCH ×2 (13:48→21:05)
[2019-11-17 06:34] LABS: Absolute Lymphocytes (CBC) 2.3 K/uL (0.7-4.9); Basophils % 0.2 % (0-1.3); Hematocrit 33.2 % (36.0-45.0); Lymphocytes % 27.9 % (15.3-44.8); MPV 8.1 fL (7.6-11.3); RBC Red Blood Cell Count 3.87 M/uL (3.86-4.86)
[2019-11-17 07:07] LABS: ALT/SGPT 14 U/L (12-78); AST/SGOT 13 U/L (15-37); Albumin 2.9 g/dL (3.4-5.0); Alkaline Phosphatase 76 U/L (45-117); BUN Blood Urea Nitrogen 6 mg/dL (7-18); Bicarbonate 23 mmol/L (21-32); Bilirubin Total 0.3 mg/dL (0.2-1.0); Glucose Level 84 mg/dL (74-106); Magnesium 2.2 mg/dL (1.8-2.4); Protein, Total 6.9 g/dL (6.4-8.2); Sodium Level 141 mmol/L (136-145)
[2019-11-17 07:51] VITALS: BP 131/82; TEMP 97.1
[2019-11-17 08:03] VITALS: O2SAT 98
[2019-11-17] MEDS: CEFTRIAXONE/SWI 1gm 1 GM/10 ML SYR IVP SCH (08:59)
[2019-11-17] MEDS: POTASS/SODIUM PHOSPHATE 1 PKT POWD.PACK PO SCH ×2 (08:59→10:10)
[2019-11-17] MEDS: ENOXAPARIN 40 MG/0.4 ML SQ SCH (08:59)
[2019-11-17] MEDS: AZITHROMYCIN IV 500 MG in NA CHLORIDE 0.9% 250 ML IVPB SCH (08:59)
[2019-11-17] MEDS: VALACYCLOVIR 500 MG TAB PO SCH (09:00)
--- NOTE | 2019-11-17 13:57 | DS ---
Date of Discharge: 11/17/2019 Admitting Diagnoses: 1.Sepsis. 2.Pneumonia. 3.Skin rash. Discharge Diagnoses: 1.Sepsis, resolved, secondary to pneumonia. 2.Right lower lobe pneumonia, cultures negative, significantly improved. 3.Hypophosphatemia, replaced. 4.Hypomagnesemia, replaced. 5.Right shoulder shingles, improving on Valtrex. No active lesions. 6.Obesity, BMI 30. Hospital Course: Patient is a 29-year-old female who comes in with cough and shortness of breath, fo und to have right lower lobe pneumonia. Patient was positive for sepsis. She was admitted to the [facility], started on IV fluids. Cultures were obtained. IV antibiotics were also initiated. Flu scre en was negative. Cultures did not show any growth to date. Sputum culture is also pending at this t [facility]. The patient's white blood cell count improved and normalized. She did not have any further sig ns or symptoms of sepsis. She was afebrile greater than 24 hours. Her pleuritic pain also improved. Patient was then doing well ambulating but not hypoxic. No signs of sepsis. She was then cleared for discharge and was sent home in a stable condition. Activity: As tolerated. Medications: As per medication reconciliation. Followup: Follow up with primary care physician in 2-3 days. Return to ER for worsening condition. Diet: Regular. Activity: As tolerated. Medications: As per medication reconciliation list. Physical Examination: General: Awake, alert, oriented x3. No acute distress. Obese female. CV: S1, S2. Respiratory: Moving air well bilaterally. Abdomen: Soft, nontender, nondistended. Positive bowel sounds. Extremities: No clubbing, cyanosis, or edema. Neuro: Nonfocal. Total time spent discharging patient was 37 minutes. SA/MODL Voice ID: [id number] Report ID: [id number]
--- NOTE | 2019-11-18 08:57 | EKG ---
Test Date: 2019-11-15 Test Time: 20:07:20 Risk Consulting Treasury Director: CATHYT MEASUREMENT RESULTS: Intervals: Rate: 108 SC: 134 QRSD: 80 QT: 308 QTc: 412 [place]: P: 33 SC: 134 QRS: 61 T: -25 INTERPRETIVE STATEMENTS: Sinus tachycardia T wave abnormality, consider inferior ischemia Abnormal ECG No previous ECG available for comparison Electronically Signed On 11-18-19 08:55:40 OUTPATIENT INTERVIEWING CLERK by Jr Rodas
== END 2019-11-17 10:49 | disposition home or self-care (01) | DRG 871 ==
LOC: ER 18:04 → 4TH 22:57
PROVIDERS: ADMIT Internal Medicine; ATTEND Internal Medicine
DX: A41.9 Sepsis, unspecified organism (principal); J18.9 Pneumonia, unspecified organism; E83.39 Other disorders of phosphorus metabolism; E83.42 Hypomagnesemia; B02.9 Zoster without complications; E66.9 Obesity, unspecified; Z68.30 Body mass index [BMI] 30.0-30.9, adult
CPT/HCPCS: 36415; 71046; 80048; 80053; 80061; 80076; 81003; 81015; 81025; 82550; 83605; 83690; 83735; 84100; 84145; 84484; 85025; 85610; 85730; 87040; 87804; 93005; 94760; 96365; 96367; 96375; 99285; J0456; J0696; J1650; J3475; J7030; J7040